=== PATIENT | male | born 1990 | race Caucasian/White ===

== ENCOUNTER 2020-05-02 10:42 | Emergency (ER) | payer MEDICAID ==
[~2020-05-02] VITALS: Ht 170.2 cm; Wt 63.5 kg
[2020-05-02 10:42] VITALS: BP_SYST 116
--- NOTE | 2020-05-02 10:42 | NUR ---
BROUGHT BACK TO BED #6 AND TRIAGED. REPORT GIVEN TO CONY
--- NOTE | 2020-05-02 10:45 | NUR ---
Patient presented to ER C/O abdominal pain. Patient A&Ox4, ambulatory to ER, afebrile, denies N/V/D, pain 6/. Patient reports left lower abdominal pain x4 days, green & purple discoloration to left lower abdomen.PT states bruise has been present x4 days and tender to touch.
--- NOTE | 2020-05-02 10:57 | NUR ---
ER at bedside examining patient.
--- NOTE | 2020-05-02 11:20 | NUR ---
CT ABD /PELVIS COMPLETED
--- NOTE | 2020-05-02 11:25 | NUR ---
Report to Rony [facility]IR for continuity of care.
--- NOTE | 2020-05-02 11:32 | NUR ---
CALM, ALERT, RESP UNLABORED, SKIN WARM AND DRY. COMMUNICATES CLEARLY IN FULL COMPLETE SENTENCES. DENIES CP/SON. NO N,V,D. STAEDY GAIT, NO DISTRESS
--- NOTE | 2020-05-02 12:06 | NUR ---
Patient given written and verbal discharge instructions and verbalizes understanding. ER MD discussed with patient the results and treatment provided. Patient in stable condition. ID arm band removed. Rx of IBU given. Patient educated on pain management and to follow up with PMD. Pain Scale 2/10 Opportunity for questions provided and answered. Medication side effect fact sheet provided.
[2020-05-02 12:09] VITALS: BP_SYST 119
== END 2020-05-02 12:06 | disposition home or self-care (01) ==
LOC: SED 10:42
DX: R10.32 Left lower quadrant pain (principal); F12.90 Cannabis use, unspecified, uncomplicated
CPT/HCPCS: 99284